=== PATIENT | female | born 1940 | race Caucasian/White ===

== ENCOUNTER 2016-08-11 17:43 | Emergency (ER) | payer MEDICARE ==
[2016-08-11] MEDS ORDERED: SODIUM CHLORIDE 0.9% 500 ML ONE (18:35)
[2016-08-11 18:55] LABS: ABSOLUTE NEUTROPHIL COUNT 7.5 K/mm3 (1.8-7.7); BASO % 0.4 % (0.2-1.0); EOS # 0.1 (0.0-0.5); EOS % 0.5 % (0.9-2.9); HEMATOCRIT 38.9 % (37.0-47.0); HEMOGLOBIN 12.3 gm/l (12.0-16.0); IMM NEUT # 0.1 K/mm3 (0-0.2); IMM NEUT% 0.5 % (0-1); LYMPH % 19.4 % (15-45); MEAN CELL VOLUME 92.2 fl (81.0-99.0); MEAN CORPUSCULAR HEMOGLOBIN 29.1 pg (27.0-31.0); MEAN CORPUSCULAR HGB CONC 31.6 g/dl (33.0-37.0); MEAN PLATELET VOLUME 9.8 fl (7.4-10.4); MONO # 0.6 (0.0-0.8); MONO % 5.4 % (4-12); NEUT % 73.8 % (43-75); PLATELET COUNT 271 K/mm3 (130-400); RED CELL DISTRIBUTION WIDTH 12.8 % (11.5-14.5)
[2016-08-11 19:12] LABS: ALB/GLOB RATIO 1.1 (>1.0); ALBUMIN 4.1 gm/dL (3.5-5.7); CALCIUM 9.9 mg/dL (8.6-10.3)
[2016-08-11 19:46] LABS: URINE BILIRUBIN NEGATIVE (NEGATIVE); URINE BLOOD 3+ (NEGATIVE); URINE GLUCOSE (UA) NEGATIVE (NEGATIVE); URINE LEUKOCYTE ESTERASE TRACE (NEGATIVE); URINE NITRITE POSITIVE (NEGATIVE); URINE PROTEIN TRACE (NEGATIVE); URINE UROBILINOGEN NORMAL (0-1 mg/dl)
[2016-08-11 19:49] LABS: URINE APPEARANCE CLEAR; URINE COLOR YELLOW
[2016-08-11 20:07] LABS: URINE BACTERIA 3+; URINE EPITHELIAL CELLS 0-2 /hpf
[2016-08-11] MEDS ORDERED: CYCLOBENZAPRINE HCL 10 MG TABLET ONE (20:24)
[2016-08-11] MEDS ORDERED: CEPHALEXIN 500 MG CAPSULE ONE (20:24)
[2016-08-11] MEDS ORDERED: ACETAMINOPHEN 500 MG TABLET ONE (20:24)
== END 2016-08-11 21:40 | disposition home or self-care (01) ==
LOC: ED 17:43
DX: N39.0 Urinary tract infection, site not specified (principal); R10.30 Lower abdominal pain, unspecified; E11.9 Type 2 diabetes mellitus without complications; F03.90 Unspecified dementia, unspecified severity, without behavioral disturbance, psychotic disturbance, mood disturbance, and anxiety; Z79.84 Long term (current) use of oral hypoglycemic drugs
CPT/HCPCS: 83690; 82150; 85025; 82550; 87086; 80053; 87186; 84484; 81001; 87077; 99284; 51701; 99283; A9270 ×2; J7040

== ENCOUNTER 2016-10-03 04:14 | Emergency (ER) | payer MEDICARE ==
[2016-10-03] MEDS ORDERED: ACETAMINOPHEN 500 MG TABLET ONE (04:15)
[2016-10-03] MEDS ORDERED: IOPAMIDOL 370 (76%) IV.SOLN 150 ML IV ONE (04:15)
[2016-10-03] MEDS ORDERED: FENTANYL 100 MCG/2 ML VIAL ONE (04:15)
[2016-10-03 04:43] LABS: ABSOLUTE NEUTROPHIL COUNT 4.8 K/mm3 (1.8-7.7); BASO # 0.1 K/mm3 (0.0-0.2); BASO % 0.7 % (0.2-1.0); EOS # 0.2 (0.0-0.5); EOS % 2.8 % (0.9-2.9); HEMATOCRIT 36.3 % (37.0-47.0); HEMOGLOBIN 11.9 gm/l (12.0-16.0); IMM NEUT% 0.3 % (0-1); LYMPH # 2.9 (1.0-4.8); LYMPH % 33.6 % (15-45); MEAN CELL VOLUME 89.6 fl (81.0-99.0); MEAN CORPUSCULAR HEMOGLOBIN 29.4 pg (27.0-31.0); MEAN CORPUSCULAR HGB CONC 32.8 g/dl (33.0-37.0); MEAN PLATELET VOLUME 9.6 fl (7.4-10.4); MONO # 0.7 (0.0-0.8); MONO % 7.6 % (4-12); PLATELET COUNT 318 K/mm3 (130-400); RED CELL DISTRIBUTION WIDTH 13.2 % (11.5-14.5)
[2016-10-03 04:44] LABS: PH,URINE 6.5 (5.0-8.0); URINE BILIRUBIN NEGATIVE (NEGATIVE); URINE BLOOD 1+ (NEGATIVE); URINE GLUCOSE (UA) NEGATIVE (NEGATIVE); URINE LEUKOCYTE ESTERASE 1+ (NEGATIVE); URINE NITRITE NEGATIVE (NEGATIVE); URINE PROTEIN NEGATIVE (NEGATIVE); URINE UROBILINOGEN NORMAL (0-1 mg/dl)
[2016-10-03 04:47] LABS: URINE APPEARANCE CLEAR; URINE COLOR YELLOW
[2016-10-03 04:49] LABS: URINE EPITHELIAL CELLS 0-3 /hpf
[2016-10-03 04:50] LABS: URINE BACTERIA 1+
[2016-10-03 04:58] LABS: TROPONIN I < 0.01 ng/ml (0.0-0.06)
[2016-10-03 05:02] LABS: CKMB ISOENZYME 2.2 ng/ml (0.6-6.3)
[2016-10-03 05:08] LABS: ALB/GLOB RATIO 1.3 (>1.0); ALBUMIN 4.1 gm/dL (3.5-5.7); CALCIUM 9.7 mg/dL (8.6-10.3)
--- NOTE | 2016-10-03 07:10 | CT ---
CTA CHEST FOR PE History: Chest pain. Comparison: None. Procedure: 1 mm axial images were obtained through the chest following the administration of 80cc's of Isovue-370 intravenous contrast. Stacked reconstructed 3 mm images were then photographed in the axial, coronal and sagittal planes. 3-D reconstructed MIP images were also performed on the scanner workstation. Findings: There is a normal appearance of the visualized thyroid gland. The heart size is appropriate. The aorta demonstrates atherosclerotic vascular calcification. The descending aorta is of normal caliber. No pericardial abnormalities are seen. The visualized esophagus appears to be appropriate. There is slight suboptimal opacification of the pulmonary arterial tree. No definite filling defect is seen within the main, primary or secondary pulmonary arterial branches. The central airways appear to be clear. No consolidation, effusion or pneumothorax is seen. Thickening of the gastric wall is suggested to though this may be at least in part due to decompression of the gastric lumen. Exophytic left renal lesions are visualized which may reflect cysts though are inadequately classify by this examination. Prominent multilevel thoracic and lumbar degenerative changes are present. Bilateral significant glenohumeral degenerative changes are present. A small low-attenuation nodule within the pancreatic body observed on the previous abdomen pelvis CT examination appears relatively stable. Impression: 1. No current findings of a pulmonary embolus visualized. 2. Atherosclerotic vascular calcification. 3. Multiple left renal nodules, indeterminate on this examination. 4. A stable appearance of the small subcentimeter low-attenuation nodule within the pancreatic body. 5. Significant multilevel thoracic and lumbar degenerative changes. 6. Significant degenerative changes of both glenohumeral joints. The findings were called to the emergency room at 0631 hours, 10/03/2016, by [facility].
--- NOTE | 2016-10-03 07:11 | RAD ---
History: Chest pain. Comparison: 03/13/2016. Technique: 2 views Findings: Multilevel thoracic degenerative changes are identified. The heart size is stable. There is no gross consolidation, effusion or pneumothorax is seen. Significant degenerative changes of both glenohumeral joints are identified. Impression: 1. No active intra-thoracic disease.
== END 2016-10-03 12:05 ==
LOC: ED 04:14
DX: R07.9 Chest pain, unspecified (principal); E11.9 Type 2 diabetes mellitus without complications; E78.5 Hyperlipidemia, unspecified; E78.00 Pure hypercholesterolemia, unspecified; F03.90 Unspecified dementia, unspecified severity, without behavioral disturbance, psychotic disturbance, mood disturbance, and anxiety; Z79.899 Other long term (current) drug therapy; Z88.6 Allergy status to analgesic agent; Z88.1 Allergy status to other antibiotic agents; Z88.8 Allergy status to other drugs, medicaments and biological substances